=== PATIENT | female | born 1975 | race Caucasian/White ===

== ENCOUNTER 2017-02-06 05:34 | Outpatient (CLI) | payer BC ==
[~2017-02-06] VITALS: Ht 175.3 cm; Wt 122.5 kg
[~2017-02-06 05:34] MED LIST: FLUO20CA42 PO; HYDR1TAB PO; PRD20T PO
[2017-02-06] MEDS ORDERED: SERT50TA9 PO (11:00)
[2017-02-06] MEDS ORDERED: AMLO5TAB2 PO (11:00)
[2017-02-06] MEDS ORDERED: LOSA50TA36 PO (11:00)
== END 2017-02-06 11:04 ==
LOC: PREOP 05:34
PROVIDERS: ATTEND Orthopaedic Surgery
DX: Z01.818 Encounter for other preprocedural examination (principal); G56.02 Carpal tunnel syndrome, left upper limb

== ENCOUNTER 2017-02-12 06:41 | Day surgery (SDC) | payer BC ==
--- NOTE | 2017-02-10 08:11 | HISTORY AND PHYSICAL ---
DATE OF ADMISSION: 02/12/2017 DICTATING PHYSICIAN: Dr. Messina This will be for outpatient surgery for left carpal tunnel release. HISTORY: The patient is a 41-year-old female with complaints of bilateral hand pain and paresthesias intermittently. She underwent an EMG which revealed bilateral carpal tunnel syndrome. She reports night pain and with associated paresthesias. She has tried rest, activity modifications, and splinting, as well as anti-inflammatories, but reports continued functional impairment and due to failure to improve with conservative measures, the patient has elected to proceed with left carpal tunnel release. REVIEW OF SYSTEMS: No chest pain, no shortness of breath. No dysuria. PAST MEDICAL HISTORY: 1. Depression. 2. Hyperlipidemia. 3. Sleep apnea. 4. Obesity. 5. Ovarian cyst. PAST SURGICAL HISTORY: 1. Hysterectomy. 2. Tonsillectomy. FAMILY HISTORY: 1. Hypertension. 2. Diabetes. PRIMARY CARE: [facility]. MEDICATIONS: 1. Losartan 2. Zoloft 3. amlodipine ALLERGIES: No known drug allergies. SOCIAL HISTORY: The patient is a former smoker. She drinks alcohol occasionally. PHYSICAL EXAMINATION: The patient is well-developed, well-nourished, in no acute distress. HEENT: Normocephalic, atraumatic. Pupils are equal, round, and reactive to light. OROPHARYNX: Clear. NECK: Supple. No lymphadenopathy. LUNGS: Clear to auscultation bilaterally. HEART: Regular rate and rhythm. ABDOMEN: Soft, nontender, nondistended. EXTREMITY EXAM: The left hand demonstrates mild thenar atrophy. She has weakness with thumb palmar abduction with a positive Tinel's at the carpal tunnel decreased sensation in the median distribution. She has negative Spurling's maneuver. No skin lesions are noted. IMPRESSION: Left carpal tunnel syndrome. PLAN: Left carpal tunnel release. The risks, benefits, options, ramifications and recovery were discussed at length with the patient and she understands and wishes to proceed. Job ID: [id number] Dictated Date: 02/03/2017 12:10:00 Vegetable Harvest Machine Operator Date: 02/04/2017 08:05:49/javy
[~2017-02-12] VITALS: Ht 175.3 cm; Wt 122.5 kg
[~2017-02-12 06:41] MED LIST changes: +AMLO5TAB2 PO; +LOSA50TA36 PO; +SERT50TA9 PO
[2017-02-12 06:50] VITALS: BP 118/84
[2017-02-12] MEDS ORDERED: NS (IVPB) 50 ML ONE (07:15)
[2017-02-12] MEDS ORDERED: ceFAZolin 1,000 MG (ANCEF) VIAL ONE (07:15)
[2017-02-12] MEDS ORDERED: ceFAZolin 1 GM/NS 50 ML IVPB IV ONE ×2 (07:30)
[2017-02-12] MEDS ORDERED: CATHETER FLUSH 10 ML SYR IV PRN (07:30)
--- NOTE | 2017-02-12 07:31 | Progress Note-Pre Operative ---
Pre-Operative Progress Note H&P Reviewed The H&P was reviewed, patient examined and no changes noted. Date H&P Reviewed: Feb 12, 2017 Time H&P Reviewed: 07:11 Pre-Operative Diagnosis: left carpal tunnel syndrome JADIEL LEVIN MD Feb 12, 2017 07:31
--- NOTE | 2017-02-12 07:32 | Progress Note-Post Operative ---
Post-Operative Progess Note Surgeon (s)/Cathode Ray Tube Assembler (s) Surgeon JADIEL LEVIN MD Cathode Ray Tube Assembler: Deon Cedillo Pre-Operative Diagnosis left carpal tunnel syndrome Post-Operative Diagnosis left carpal tunnel syndrome Post-Op Procedure Note Date of Procedure: Feb 12, 2017 Name of Procedure Performed: left open carpal tunnel release Description of the Procedure: see operative note Findings of the Procedure see operative note Anesthesia Type MAC plus local Estimated blood loss (mL): minimal Packing: none Specimen(s) collected/removed none JADIEL LEVIN MD Feb 12, 2017 07:32
[2017-02-12] MEDS ORDERED: LACTATED RINGERS 1,000 ML IV PRN (07:46)
[2017-02-12] MEDS ORDERED: PROPOFOL INJECTION 50 ML IV ONE (08:20)
[2017-02-12] MEDS ORDERED: LACTATED RINGERS 1,000 ML IV ONE (08:20)
[2017-02-12] MEDS ORDERED: MIDAZOLAM 10 MG/2 ML (VERSED) VIAL ONE (08:21)
[2017-02-12] MEDS ORDERED: fentaNYL INJECTION 100 MCG/2 ML AMP ONE (08:21)
[2017-02-12] MEDS ORDERED: HYDROcodone/APAP 7.5 MG/325 MG (LORTAB, LORCET PLUS) TABLET PO PRN (08:30)
[2017-02-12] MEDS ORDERED: LIDOCAINE 1% INJ 20 ML (XYLOCAINE) VIAL ONE (08:33)
[2017-02-12] MEDS ORDERED: BUPIVACAINE 0.5% 30 ML (SENSORCAINE) VIAL ONE (08:33)
[2017-02-12] MEDS ORDERED: MEPERIDINE (DEMEROL) INJ 50 MG/ML IVP PRN (09:15)
[2017-02-12] MEDS ORDERED: ONDANSETRON 4 MG/2 ML (SDV) Z0FRAN IVP PRN (09:15)
[2017-02-12] MEDS ORDERED: morphine INJ 10 MG/ML 1ML (SYR OR VIAL) IVP PRN (09:15)
[2017-02-12 10:35] VITALS: BP 141/87
[2017-02-12 11:05] VITALS: BP 133/83
[2017-02-12] MEDS ORDERED: HYDR-3816 PO (11:19)
[2017-02-12 11:35] VITALS: BP 119/85
[2017-02-12 11:40] VITALS: BP 119/85
--- NOTE | 2017-02-13 11:12 | OPERATIVE REPORT ---
PROCEDURE PHYSICIAN: JADIEL LEVIN DATE OF PROCEDURE: 02/12/2017 PREOPERATIVE DIAGNOSIS: Left carpal tunnel syndrome. POSTOPERATIVE DIAGNOSIS: Left carpal tunnel syndrome. PROCEDURE: Left carpal tunnel release. SURGEON: Siddharth HOT CAR CHARGER: Deon Cedillo, who assisted throughout the procedure and closed the incisions ANESTHESIA: Monitored anesthesia care plus local by Deon Hayes CRNA. TOURNIQUET TIME: 4 minutes at 250 mmHg. ESTIMATED BLOOD LOSS: Minimal. DRAINS: None. COMPLICATIONS: None. POSTOPERATIVE PLAN: Routine protocol. The patient was transported to the recovery room, awake, in stable condition. STATEMENT OF MEDICAL NECESSITY: The patient is a 41-year-old, [id number] female with complaints of left hand pain and paresthesias. An EMG nerve conduction study revealed evidence of left carpal tunnel syndrome. She complained of night pain. She complained of paresthesias which are interfering with her activities of daily living and due to functional impairment and failure to improve with conservative measures, the patient elected to proceed with surgical intervention. PROCEDURE: After risks and benefits of procedure were discussed and questions were answered an informed consent signed and placed on the chart. The operative site was confirmed in the preoperative holding area and initialed by the surgeon. The patient was then transported to the operating room and after adequate levels of monitored anesthesia care were obtained, a timeout was called confirming the operative sites. Under sterile conditions, the incision site was infiltrated with combination of plain lidocaine and plain Marcaine. The left upper extremity was then prepped and draped in the usual sterile fashion. With arm elevated, the tourniquet was inflated to 250 mmHg. An incision was made in line with the radial border of the ring finger and then the underlying soft tissues were carefully dissected. The roof of the transverse carpal ligament was identified and sharply incised under direct visualization while pushing through with the scalpel blade. The median nerve was identified and carefully protected throughout the procedure. It was intact at the conclusion of the procedure. The nerve was fully released distally and then proximally under direct visualization while protecting the nerve. The transverse carpal ligament was incised with the slightly opened scissor ends and snipping under direct visualization until fully freed. This was confirmed fully freed with a [place]. The tourniquet was deflated for a total tourniquet time of 4 minutes. Pressure was used for hemostasis. The wound was copiously irrigated and then closed with 4-0 nylon in a running, alternating horizontal mattress fashion. A soft dressing was applied, as well as a splint and the patient was transported to the recovery room, awake, in stable condition. Job ID: [id number] Dictated Date: 02/12/2017 09:22:51 Public Policy Coordinator Date: 02/13/2017 11:01:47 / humberto
--- OUTSIDE RECORDS SUMMARY | 2017-03-02 05:46 | XMS REPORT ---
Author Author JI ROBERSON [facility] eClinicalWorks Address Unknown Phone Unavailable Care Team Providers Care Assembler [employer]al [employer] Name Role Phone JI ROBERSON Unavailable Allergies No Known Allergies Problems Problem Type Condition Code Onset Dates Condition Status Problem Personal history of tobacco use, presenting hazards to health V15.82 Active Problem Excessive or frequent menstruation 626.2 Active Problem Dietary surveillance and counseling V65.3 Active Problem Screening for malignant neoplasm of the cervix V76.2 Active Problem Special screening examination, human papillomavirus [HPV] V73.81 Active Problem HTN (hypertension) I10 Active Problem Routine gynecological examination V72.31 Active Problem Unspecified breast screening V76.10 Active Problem Screening examination for venereal disease V74.5 Active Problem Morbid obesity 278.01 Active Problem Wheezing 786.07 Active Problem Irregular menstrual cycle 626.4 Active Problem Other abnormal glucose 790.29 Active Problem Cough 786.2 Active Problem Acute sinusitis, unspecified 461.9 Active Medications No Known Medications Results No Known Results Summary Purpose eClinicalWorks Submission
--- OUTSIDE RECORDS SUMMARY | 2017-03-02 05:46 | XMS REPORT | Continuity of Care Document ---
Author Author [facility] Organization [facility] Address Unknown Phone Unavailable Care Team Providers Care Glove Boarder Name Role Phone Hayde Rockwell PCP [phone] Source Comments Some departments are not documenting in the electronic medical record. If you do not see the information that you expected, contact Release of Information in the Health Information Management department at [phone] for further assistance in locating additional records.[facility] Active Allergies and Adverse Reactions No Known Allergies Current Medications Prescription Sig. Disp. Refills Start End Date Status Date senna/docusate Take 1 Tab by mouth twice 60 Tab 0 06/28/20 Active (SENOKOT-S) 8.6/50 mg daily. 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 Perez on 06/04/2016 for an ovarian mass. She repoerted that she presented to her PCP due to irregular bleeding in April. An ultrasound done on 05/16/2016 showed a large solid shadowing mass measuring 7 x 6 x 8 cm. Arose from the right ovary. Upon examination, there was a cervical polyp noted. There was a large mobile mass in the right adnexa. Did not appear to be connected to the uterus CA125: 28.7 CEA: 2.4 CT obtained on 06/06/2016 which showed a 10 cm pelvic mass abutting the posterior margin of the uterus. Consider ovarian fibrothecoma or fibroid arising from the posterior margin of the uterus./broad ligament Pathology: 1. none Radiology/procedures: 1. CT: Done on 06/07/2016 (new since last ultrasound from 2013): 10 cm mass; correlation with recent MRI: ovarian fibrothecoma or fibroma from uterus/broad ligament 2. Ultrasound: 05/16/2016: uterus is 9.8 x 5. X 5.7 cm. involution cyst in the left ovary. The right ovary appears normal in size at 5 x 3 x 2 cm. There is a large solid mass extending off the inferior aspect of the right ovary at 7 x 6 x 8 cm. Mild free fluid 3. Other: no S/P HERNAN/BSO with Dr. CLEMENTS 06/26/16 with fibroma of L ovary and leiomyoma of the uterus. Presents for final 8 week postoperative visit. A. Portion of ovary, "left ovary", oophorectomy: Ovary: Benign ovarian fibroma. Surface inclusion and follicular cysts. B. Ovary and fallopian tube, "left tube and remaining portion of left ovary", salpingo-oophorectomy: Ovary: Benign surface inclusion and follicular cysts. Fallopian tube: No diagnostic abnormalities. C. Ovary and fallopian tube, "right tube and ovary", salpingo-oophorectomy: Ovary: Benign surface inclusion, corpus luteal cyst and follicular cysts. Fallopian tube: No diagnostic abnormalities. D. "Uterus and cervix", hysterectomy: Cervix: Benign nabothian cysts. Endometrium: Proliferative phase endometrium Myometrium: Leiomyomata. L ast Assessment & Plan: 1. Ms. Alvarez is a 40 yo female s/p HERNAN/BSO 06/26/[address] CLEMENTS. 2. Presents for final 8 week postoperative visit. 3. Exam is routine postoperative without complication. 4. Encourage annual pelvic/rectal exams with PCP/PROFESSOR OF BIOLOGY along with routine screening tests. 5. Recommend activity as tolerated. Avoid baths and nothing in vagina until 10 weeks. 6. RV PRN. Cellulitis 07/04/2016 Resolved Problems Problem Noted Date Resolved Date Pelvic mass in female 06/26/2016 07/04/2016 Ovarian mass 06/16/2016 07/04/2016 Overview: CC: ovarian mass, evaluate and treat REF:Conchis Perez MD PCP: Rahul Rockwell APRN HPI: Ms Alvarez is a 40 yo who presented to Dr. Perez on 06/04/2016 for an ovarian mass. She repoerted that she presented to her PCP due to irregular bleeding in April. An ultrasound done on 05/16/2016 showed a large solid shadowing mass measuring 7 x 6 x 8 cm. Arose from the right ovary. Upon examination, there was a cervical polyp noted. There was a large mobile mass in the right adnexa. Did not appear to be connected to the uterus CA125: 28.7 CEA: 2.4 CT obtained on 06/06/2016 which showed a 10 cm pelvic mass abutting the posterior margin of the uterus. Consider ovarian fibrothecoma or fibroid arising from the posterior margin of the uterus./broad ligament She is now being referred to my office. Pathology: 1. none Radiology/procedures: 1. CT: Done on 06/07/2016 (new since last ultrasound from 2013): 10 cm mass; correlation with recent MRI: ovarian fibrothecoma or fibroma from uterus/broad ligament 2. Ultrasound: 05/16/2016: uterus is 9.8 x 5. X 5.7 cm. involution cyst in the left ovary. The right ovary appears normal in size at 5 x 3 x 2 cm. There is a large solid mass extending off the inferior aspect of the right ovary at 7 x 6 x 8 cm. Mild free fluid 3. Other: no PMH: 1. Any history of problems with heart/lung/kidney/liver/hepatitis/DM/thyroid disease/hematologic disorders/DVT: 2. Obesity 3. HTN 4. GERD 5. depression PSH: 1. Tonsillectomy PULLEY MAN: 1. 2. Menarche: 10 3. LMP/menopausal: 05/25/2016 4. OCP/ERT/HRT: OCP x 1 year 5. control-current: no 6. STDs: no 7. Sexually active: Only with women 8. Fibroids/endometriosis: no hx 9. If premenopausal, menstrual pattern, normal: q 29 days, lasting 5-7 days 10. Last pap smear: 06/04/2016: HR-HPV: Negative SH: 1. Smoke: 1ppd x 20 years 2. Drugs: no 3. ETOH: occasional. Occupation: farming in [employer] 5. Marital status: single; partners have been women 6. Last colonoscopy: none 7. Last Mammogram: none FH: 1. Cancer: no L ast Assessment & Plan: With the exception of the mass, the CT is unremarkable. It is not clear from either the MRI or the CT whether it arises from the uterus, or ovary. That being said, it is difficult to get her to relax; I have scheduled her for an EUA, possible biopsy on Friday. I performed an EMB and ECC/cervix polyp biopsy today. Will further discuss DDX; that being said, will arrange for surgery- definitive once I have more information. The mass itself will need to be removed; will require removal of the uterus/ovaries/tubes. Observation is not an option due to size, characteristics. It seems to be behaving like a benign mass, but the exam/films are confusing. I hope that I can get more information with the EUA. Social History Tobacco Use Types Packs/Day Years Used Date Current Every Day Smoker Cigarettes 1 Smokeless Tobacco: Never Used Tobacco Cessation: Ready to Quit: Yes; Counseling Given: No Comments: Alcohol Use Drinks/Week oz/Week Comments Yes Last Filed Vital Signs Vital Sign Reading Time Taken Blood Pressure 140/83 08/22/2016 10:12 AM CDT Pulse 83 08/22/2016 10:12 AM CDT Temperature 36.8 C (98.2 F) 08/22/2016 10:12 AM CDT Respiratory Rate 20 07/04/2016 11:03 AM CDT Height 1.753 m (5' 9") 08/22/2016 10:12 AM CDT Weight 116.937 kg (257 lb 12.8 08/22/2016 10:12 AM CDT oz) Body Mass Index 38.05 08/22/2016 10:12 AM CDT Oxygen Saturation 97% 08/22/2016 10:12 AM CDT Plan of Care Health Maintenance Due Date Last Done Comments Physical (Comprehensive) 1982 Exam Pertussis Vaccine 1986 Tetanus Vaccine 1992 Cervical Cancer Screening 1996 Breast Cancer Screening 2015 Influenza Vaccine 07/18/2017 Results from Last 3 Months Not on file
--- OUTSIDE RECORDS SUMMARY | 2017-03-02 05:46 | XMS REPORT ---
Author Author TARA THOMAS [facility] eClinicalWorks Address Unknown Phone Unavailable Care Team Providers Care Finance Business Manager Name Role Phone TARA THOMAS CP Unavailable Allergies, Adverse Reactions, Alerts Substance Reaction Event Type N.K.D.A. Info Not Available Non Drug Allergy Problems Problem Type Condition ICD-9 Code Onset Dates Condition Status Problem Acute sinusitis, unspecified 461.9 Active Problem Dietary surveillance and counseling V65.3 Active Problem Personal history of tobacco use, presenting hazards to health V15.82 Active Problem Special screening examination, human papillomavirus [HPV] V73.81 Active Problem Screening examination for venereal disease V74.5 Active Problem Screening for malignant neoplasm of the cervix V76.2 Active Problem Unspecified breast screening V76.10 Active Problem Excessive or frequent menstruation 626.2 Active Problem Morbid obesity 278.01 Active Problem Routine gynecological examination V72.31 Active Problem Cough 786.2 Active Problem Wheezing 786.07 Active Assessment Poison jacqueline 692.6 Active Problem Irregular menstrual cycle 626.4 Active Assessment Depression 311 Active Problem Other abnormal glucose 790.29 Active Medications Medication Code System Code Instructions Start Date End Date Status Dosage Zoloft [facility] [address]-75 50 MG Orally Once a day Aug 10, 2015 1 tablet Triamcinolone Acetonide [facility] [address]-07 0.1 % Externally Twice a day prn Aug 10, 2015 1 application to affected area Procedures Procedure Coding System Code Date Office Visit, Est Pt., Level 3 CPT-4 01597 Aug 10, 2015 Vital Signs Date/Time: Aug 10, 2015 Temperature 97.3 F Weight 265.5 lbs Height 68 in BMI 40.36 Index Blood Pressure Diastolic 78 mmHg Blood Pressure Systolic 112 mmHg Cardiac Monitoring Heart Rate 80 bpm Results No Known Results Summary Purpose eClinicalWorks Submission
--- OUTSIDE RECORDS SUMMARY | 2017-03-02 05:46 | XMS REPORT ---
Author JI Dutton Organization eClinicalWorks Address Unknown Phone Unavailable Care Team Providers Care Ironing Worker Name Role Phone JI ROBERSON CP Unavailable Allergies, Adverse Reactions, Alerts Substance Reaction Event Type N.K.D.A. Info Not Available Non Drug Allergy Problems Problem Type Condition Code Onset Dates Condition Status Problem HTN (hypertension) I10 Active Problem Hypertriglyceridemia E78.1 Active Problem Abnormal fasting glucose R73.09 Active Assessment Environmental allergies Z91.09 Active Problem Personal history of tobacco use, presenting hazards to health V15.82 Active Assessment Bronchitis J40 Active Medications Medication Code System Code Instructions Start Date End Date Status Dosage Proventil HFA [facility] [address]-64 108 (90 Base) MCG/ACT Inhalation every 4 hrs Nov 09, 2015 2 puffs as needed Amlodipine Besylate [facility] [address]-48 5 MG Orally Once a day Oct 17, 2015 1 tablet Levaquin [facility] [address]-67 500 MG Orally Once a day Nov 09, 2015 Nov 19, 2015 1 tablet Zoloft [facility] [address]-11 50 MG Orally Once a day Aug 10, 2015 1 tablet Losartan Potassium [facility] [address]-14 50 MG Orally 2 times a day Sep 14, 2015 1 tablet Procedures Procedure Coding System Code Date DEXAMETHASONE 4MG/ML (PER 1 MG) CPT-4 J1100 Nov 09, 2015 THER/PROPH/DIAG INJ, SC/IM CPT-4 32181 Nov 09, 2015 Office Visit, Est Pt., Level 3 CPT-4 44670 Nov 09, 2015 DEPO MEDROL 40 MG/ML CPT-4 J1030 Nov 09, 2015 Vital Signs Date/Time: Nov 09, 2015 Temperature 96.9 F Weight 260.4 lbs Height 68 in BMI 39.59 Index Blood Pressure Diastolic 64 mmHg Blood Pressure Systolic 120 mmHg Cardiac Monitoring Heart Rate 80 bpm Results No Known Results Summary Purpose eClinicalWorks Submission
--- OUTSIDE RECORDS SUMMARY | 2017-03-02 05:46 | XMS REPORT ---
Author Author ABDELRAHMAN HERBERT Organization eClinicalWorks Address Unknown Phone Unavailable Care Team Providers Care Floor Representative Name Role Phone ABDELRAHMAN HERBERT CP Unavailable Allergies, Adverse Reactions, Alerts Substance Reaction Event Type N.K.D.A. Info Not Available Non Drug Allergy Problems Problem Type Condition Code Onset Dates Condition Status Problem HTN (hypertension) I10 Active Problem Hypertriglyceridemia E78.1 Active Problem Abnormal fasting glucose R73.09 Active Assessment Otitis media of both ears H66.93 Active Problem Personal history of tobacco use, presenting hazards to health V15.82 Active Assessment Vertigo R42 Active Medications Medication Code System Code Instructions Start Date End Date Status Dosage Amlodipine Besylate [facility] [address]-29 5 MG Orally Once a day Oct 17, 2015 1 tablet Losartan Potassium [facility] [address]-91 50 MG TAKE ONE TABLET BY MOUTH TWICE DAILY Augmentin [facility] [address]-69 875-125 MG Orally every 12 hrs March 05, 2016 March 15, 2016 1 tablet Zoloft [facility] [address]-89 50 MG Orally Once a day Aug 10, 2015 1 tablet Procedures Procedure Coding System Code Date Office Visit, Est Pt., Level 3 CPT-4 68486 March 12, 2016 Vital Signs Date/Time: March 12, 2016 Temperature 97.8 F Weight 256 lbs Height 68 in BMI 38.92 Index Blood Pressure Diastolic 88 mmHg Blood Pressure Systolic 128 mmHg Cardiac Monitoring Heart Rate 64 bpm Results No Known Results Summary Purpose eClinicalWorks Submission
--- OUTSIDE RECORDS SUMMARY | 2017-03-02 05:46 | XMS REPORT ---
Author Author ROXANA REAGAN Organization eClinicalWorks Address Unknown Phone Unavailable Care Team Providers Care Recreation Assistant Name Role Phone ROXANA REAGAN CP Unavailable Allergies, Adverse Reactions, Alerts Substance Reaction Event Type N.K.D.A. Info Not Available Non Drug Allergy Problems Problem Type Condition Code Onset Dates Condition Status Assessment Bronchitis J40 Active Problem Dysfunctional uterine bleeding N93.8 Active Problem Sleep apnea in adult G47.33 Active Problem Pelvic pain R10.2 Active Problem HTN (hypertension) I10 Active Problem Hypertriglyceridemia E78.1 Active Problem Depression, unspecified depression type F32.9 Active Problem Abnormal fasting glucose R73.09 Active Medications Medication Code System Code Instructions Start Date End Date Status Dosage Losartan Potassium [facility] [address]-90 50 mg Orally 2 times a day 1 tablet Amlodipine Besylate [facility] 00796325235 5 MG TAKE ONE TABLET BY MOUTH ONCE DAILY ProAir HFA [facility] [address]-42 108 (90 Base) MCG/ACT Inhalation every 4 hrs as needed Sep 19, 2016 2 puffs as needed Azithromycin [facility] [address]-31 250 MG Orally Once a day Sep 19, 2016 Sep 24, 2016 2 tablets on the first day, then 1 tablet daily for 4 days Zoloft [facility] [address]-93 50 MG Orally Once a day Aug 10, 2015 1 tablet Procedures Procedure Coding System Code Date Office Visit, Est Pt., Level 3 CPT-4 39620 Sep 19, 2016 SOLUMEDROL (UP TO 125 MG) CPT-4 J2930 Sep 19, 2016 ALBUTEROL INHAL UNIT DOSE 1 MG CPT-4 J7613 Sep 19, 2016 THER/PROPH/DIAG INJ, SC/IM CPT-4 53559 Sep 19, 2016 Vital Signs Date/Time: Sep 19, 2016 Cardiac Monitoring Heart Rate 80 bpm Weight 256 lbs Height 68 in BMI 38.92 Index Blood Pressure Diastolic 80 mmHg Blood Pressure Systolic 116 mmHg Results Name Result Date Reference Range Unit Abnormality Flag NEBULIZER TREATMENT Summary Purpose eClinicalWorks Submission
--- OUTSIDE RECORDS SUMMARY | 2017-03-02 05:47 | XMS REPORT ---
Author Author ABDELRAHMAN HERBERT Organization eClinicalWorks Address Unknown Phone Unavailable Care Team Providers Care Purchaser Automotive Parts Name Role Phone ABDELRAHMAN HERBERT CP Unavailable Allergies, Adverse Reactions, Alerts Substance Reaction Event Type N.K.D.A. Info Not Available Non Drug Allergy Problems Problem Type Condition Code Onset Dates Condition Status Problem HTN (hypertension) I10 Active Problem Hypertriglyceridemia E78.1 Active Problem Abnormal fasting glucose R73.09 Active Problem Personal history of tobacco use, presenting hazards to health V15.82 Active Assessment Otitis media of both ears H66.93 Active Medications Medication Code System Code Instructions Start Date End Date Status Dosage Zoloft [facility] [address]-89 50 MG Orally Once a day Aug 10, 2015 1 tablet Losartan Potassium [facility] [address]-19 50 MG TAKE ONE TABLET BY MOUTH TWICE DAILY Amlodipine Besylate [facility] [address]-78 5 MG Orally Once a day Oct 17, 2015 1 tablet Augmentin [facility] [address]-86 875-125 MG Orally every 12 hrs March 05, 2016 March 15, 2016 1 tablet Procedures Procedure Coding System Code Date Office Visit, Est Pt., Level 3 CPT-4 95448 March 05, 2016 Vital Signs Date/Time: March 05, 2016 Temperature 98.2 F Weight 257.3 lbs Height 68 in BMI 39.12 Index Blood Pressure Diastolic 84 mmHg Blood Pressure Systolic 130 mmHg Cardiac Monitoring Heart Rate 72 bpm Results No Known Results Summary Purpose eClinicalWorks Submission
--- OUTSIDE RECORDS SUMMARY | 2017-03-02 05:47 | XMS REPORT ---
Author Author TARA THOMAS [facility] eClinicalWorks Address Unknown Phone Unavailable Care Team Providers Care Utility Operator Name Role Phone TARA THOMAS CP Unavailable Allergies No Known Allergies Problems Problem [...] Problem Irregular menstrual cycle 626.4 Active Assessment Elevated fasting glucose R73.01 Active Problem Other abnormal glucose 790.29 Active Problem Cough 786.2 Active Problem Acute sinusitis, unspecified 461.9 Active Medications Medication Code System Code Instructions Start Date End Date Status Dosage Fish Oil [facility] [address]-09 1000 MG Orally Once a day 2 capsule Results No Known Results Summary Purpose eClinicalWorks Submission
--- OUTSIDE RECORDS SUMMARY | 2017-03-02 05:47 | XMS REPORT ---
Author Author TARA THOMAS Organization eClinicalWorks Address Unknown Phone Unavailable Care Team Providers Care Qa Tester Name Role Phone TARA THOMAS CP Unavailable Allergies No Known Allergies Problems Problem Type Condition Code Onset Dates Condition Status Problem HTN (hypertension) I10 Active Problem Hypertriglyceridemia E78.1 Active Problem Abnormal fasting glucose R73.09 Active Problem Personal history of tobacco use, presenting hazards to health V15.82 Active Medications Medication Code System Code Instructions Start Date End Date Status Dosage Amlodipine Besylate [facility] [address]-30 5 MG Orally Once a day Oct 17, 2015 1 tablet Losartan Potassium [facility] [address]-82 50 mg Orally 2 times a day 1 tablet Results No Known Results Summary Purpose eClinicalWorks Submission
--- OUTSIDE RECORDS SUMMARY | 2017-03-02 05:47 | XMS REPORT ---
Author Author JI ROBERSON Organization [facility] Address [address] [place] [address] Care Team Providers Care Matrix Inspector Name Role Phone JI ROBERSON Unavailable PROBLEMS Type Condition ICD9-CM Code DQL38-HH Code Onset Dates Condition Status SNOMED Code Problem Hypertriglyceridemia E78.1 Active 301589792 Problem Pelvic pain R10.2 Active 39137662 Problem Dysfunctional uterine bleeding N93.8 Active 81042272 Problem Abnormal fasting glucose R73.09 Active 803847822 Problem HTN (hypertension) I10 Active 91753186 Problem Sleep apnea in adult G47.33 Active 46705696 Problem Depression, unspecified depression type F32.9 Active 75381659 ALLERGIES Unknown Allergies SOCIAL HISTORY No smoking Hx information available PLAN OF CARE VITAL SIGNS MEDICATIONS Medication Instructions Dosage Frequency Start Date End Date Duration Status Chantix Continuing Month Francisco 1 MG Orally Twice a day 1 tablet 12h Sep, 30 day(s) Active RESULTS No Results PROCEDURES No Known procedures IMMUNIZATIONS No Known Immunizations
--- OUTSIDE RECORDS SUMMARY | 2017-03-02 05:47 | XMS REPORT | Continuity of Care Document ---
Author Author [facility] Organization [facility] Address Unknown Phone Unavailable Allergies Active Description Code Type Severity Reaction Onset Reported/Identified Relationship to Patient Clinical Status Yes No Known Drug Allergies [id number] Drug Allergy Unknown N/ A 06/30/2011 Medications Problems Date Dx Coded Attending Type Code Diagnosis Diagnosed By 04/17/2010 465.9 Upper Respiratory Infection 04/17/2010 465.9 Upper Respiratory Infection 04/17/2010 MADTHERESA Ca APRNA L 465.9 Upper Respiratory Infection 04/17/2010 DEANNA THOMAS MANDY A 465.9 Upper Respiratory Infection 04/17/2010 DEANNA THOMAS MANDY A 465.9 Upper Respiratory Infection 04/17/2010 MADTHERESA Ca APRNA L 465.9 Upper Respiratory Infection 04/17/2010 GERBER CARLTON APRNRICIA R 465.9 Upper Respiratory Infection 08/28/2010 461.9 Sinusitis Acute 08/28/2010 461.9 Sinusitis Acute 08/28/2010 ROSEY THOMAS APRNWNYA L 461.9 Sinusitis Acute 08/28/2010 DEANNAKVNG THOMAS MANDY A 461.9 Sinusitis Acute 08/28/2010 DEANNAKVNG THOMAS MANDY A 461.9 Sinusitis Acute 08/28/2010 ROSEY THOMAS APRNWNYA L 461.9 Sinusitis Acute 08/28/2010 GERBER CARLTON APRNRICIA R 461.9 Sinusitis Acute 09/19/2010 296.32 MO DEPRESSIVE RECURRENT MODERATE 09/19/2010 296.32 MO DEPRESSIVE RECURRENT MODERATE 09/19/2010 MADROSEY Ca APRNWNYA L 296.32 MO DEPRESSIVE RECURRENT MODERATE 09/19/2010 DEANNAKVNG THOMAS MANDY A 296.32 MO DEPRESSIVE RECURRENT MODERATE 09/19/2010 DEANNAKVNG THOMAS MANDY A 296.32 MO DEPRESSIVE RECURRENT MODERATE 09/19/2010 MADROSEY Ca APRNWNYA L 296.32 MO DEPRESSIVE RECURRENT MODERATE 09/19/2010 JOSE LUIS CARLTON APRN R 296.32 MO DEPRESSIVE RECURRENT MODERATE 06/30/2011 Ot 620.2 OVARIAN CYST NEC/NOS 06/30/2011 Ot 625.9 FEM GENITAL SYMPTOMS NOS 07/17/2011 620.2 OVARIAN CYST 07/17/2011 620.2 OVARIAN CYST 07/17/2011 SEVENTHERESA Ca APRNA L 620.2 OVARIAN CYST 07/17/2011 DEANNA APRN, MANDY A 620.2 OVARIAN CYST 07/17/2011 DEANNA APRN, MANDY A 620.2 OVARIAN CYST 07/17/2011 SEVENTHERESA Ca APRNA L 620.2 OVARIAN CYST 07/17/2011 JOSE LUIS CARLTON APRN R 620.2 OVARIAN CYST 09/19/2011 V65.45 Anticipatory Guidance: Unsafe Sexual Practices 09/19/2011 V74.5 visit for: screening exam bact/spirochetal venereal disease 09/19/2011 V76.2 Cervical Pap Smear 09/19/2011 V65.45 Anticipatory Guidance: Unsafe Sexual Practices 09/19/2011 V74.5 Visit For: Screening Exam Bact/spirochetal Venereal Disease 09/19/2011 V76.2 Cervical Pap Smear 09/19/2011 TARA THOMAS APRN V65.45 Anticipatory Guidance: Unsafe Sexual Practices 09/19/2011 TARA THOMAS APRN L V74.5 Visit For: Screening Exam Bact/spirochetal Venereal Disease 09/19/2011 TARA THOMAS APRN V76.2 Cervical Pap Smear 09/19/2011 MANDY HUERTA APRN A V65.45 Anticipatory Guidance: Unsafe Sexual Practices 09/19/2011 DEANNA THOMAS MANDY A V74.5 Visit For: Screening Exam Bact/ spirochetal Venereal Disease 09/19/2011 DEANNA THOMAS MANDY A V76.2 Cervical Pap Smear 09/19/2011 DEANNA THOMAS MANDY A V65.45 Anticipatory Guidance: Unsafe Sexual Practices 09/19/2011 DEANNA THOMAS MANDY A V74.5 Visit For: Screening Exam Bact/ spirochetal Venereal Disease 09/19/2011 OLIVERIO HUERTA APRNIDI A V76.2 Cervical Pap Smear 09/19/2011 ROSEY THOMAS APRNGORDO Ca V65.45 Anticipatory Guidance: Unsafe Sexual Practices 09/19/2011 WILLIAM THOMAS TARA L V74.5 Visit For: Screening Exam Bact/spirochetal Venereal Disease 09/19/2011 ROSEY THOMAS APRNWNYA L V76.2 Cervical Pap Smear 09/19/2011 JOSE LUIS CARLTON APRN R V65.45 Anticipatory Guidance: Unsafe Sexual Practices 09/19/2011 JOSE LUIS CRALTON APRN R V74.5 Visit For: Screening Exam Bact/ spirochetal Venereal Disease 09/19/2011 JOSE LUIS CARLTON APRN R V76.2 Cervical Pap Smear 11/08/2011 Ot 327.23 OBSTRUCTIVE SLEEP APNEA (ADULT) (PEDIATR 12/04/2011 Ot 327.23 OBSTRUCTIVE SLEEP APNEA (ADULT) (PEDIATR 06/13/2012 Ot 787.02 NAUSEA ALONE 06/13/2012 Ot 789.06 ABDOMINAL PAIN, EPIGASTRIC 07/14/2012 Ot 719.46 JOINT PAIN-L/LEG 02/25/2013 V65.3 COUNSELING- OBESITY (DIET) 02/25/2013 SEVENRoby WILLIAMTARA L V65.3 COUNSELING- OBESITY (DIET) 02/25/2013 MANDY HUERTA APRN A V65.3 COUNSELING- OBESITY (DIET) 02/25/2013 MANDY HUERTA APRN A V65.3 COUNSELING- OBESITY (DIET) 02/25/2013 TARA THOMAS APRN L V65.3 COUNSELING- OBESITY (DIET) 02/25/2013 JOSE LUIS CARLTON APRN R V65.3 COUNSELING- OBESITY (DIET) 06/01/2014 WILLIAM WILLIAMTARA L V15.82 NICOTINE ABUSE 06/01/2014 MANDY HUERTA APRN A V15.82 NICOTINE ABUSE 06/01/2014 MANDY HUERTA APRN A V15.82 NICOTINE ABUSE 06/01/2014 TARA THOMAS APRN L V15.82 NICOTINE ABUSE 06/01/2014 JOSE LUIS CARLTON APRN R V15.82 NICOTINE ABUSE 09/07/2014 MANDY HUERTA APRN A 626.4 IRREGULAR MENSTRUAL CYCLE 09/07/2014 DEANNA PATROL SUPERVISOR, MANDY A 626.4 IRREGULAR MENSTRUAL CYCLE 09/07/2014 THERESA THOMAS APRNA L 626.4 IRREGULAR MENSTRUAL CYCLE 09/07/2014 SAEED CARLTON APRNIA R 626.4 IRREGULAR MENSTRUAL CYCLE 09/21/2014 OLIVERIO HUERTA APRNIDI A 278.01 MORBID OBESITY 09/21/2014 OLIVERIO HUERTA APRNIDI A 626.2 EXCESSIVE OR FREQUENT MENSTRUATION 09/21/2014 OLIVERIO HUERTA APRNIDI A V72.31 SUPERVISOR LIQUID YEAST EXAM, ROUTINE 09/21/2014 OLIVERIO HUERTA APRNIDI A V72.62 LAB SCREENING- GENERAL PHYSICAL 09/21/2014 OLIVERIO HUERTA APRNIDI A V73.81 HPV SCREENING 09/21/2014 OLIVERIO HUERTA APRNIDI A V74.5 STD SCREEN 09/21/2014 OLIVERIO HUERTA APRNIDI A V76.10 BREAST CANCER SCREENING 09/21/2014 OLIVERIO HUERTA APRNIDI A V76.2 CERVICAL CANCER SCREENING (PAP SMEAR) 09/21/2014 THERESA THOMAS APRNA L 278.01 MORBID OBESITY 09/21/2014 THERESA THOMAS APRNA L 626.2 EXCESSIVE OR FREQUENT MENSTRUATION 09/21/2014 ROSEANNE THOMAS APRNNYA L V72.31 SUPERVISOR LIQUID YEAST EXAM, ROUTINE 09/21/2014 ROSEANNE THOMAS APRNNYA L V72.62 LAB SCREENING- GENERAL PHYSICAL 09/21/2014 ROSEY THOMAS APRNWNYA L V73.81 HPV SCREENING 09/21/2014 ROSEANNE THOMAS APRNNYA L V74.5 STD SCREEN 09/21/2014 ROSEANNE THOMAS APRNNYA L V76.10 BREAST CANCER SCREENING 09/21/2014 WILLIAM THOMAS TARA L V76.2 CERVICAL CANCER SCREENING (PAP SMEAR) 09/21/2014 SAEED CARLTON APRNIA R 278.01 MORBID OBESITY 09/21/2014 SAEED CARLTON APRNIA R 626.2 EXCESSIVE OR FREQUENT MENSTRUATION 09/21/2014 JOSE LUIS CARLTON APRN R V72.31 SUPERVISOR LIQUID YEAST EXAM, ROUTINE 09/21/2014 JOSE LUIS CARLTON APRN R V72.62 LAB SCREENING- GENERAL PHYSICAL 09/21/2014 JOSE LUIS CARLTON APRN V73.81 HPV SCREENING 09/21/2014 CARLTON WILLIAM JOSE LUIS R V74.5 STD SCREEN 09/21/2014 CARLTON PATROL SUPERVISORJOSE LUIS Casey R V76.10 BREAST CANCER SCREENING 09/21/2014 CARLTON GERBER THOMASRICIA R V76.2 CERVICAL CANCER SCREENING (PAP SMEAR ) 09/29/2014 Ot 620.2 09/29/2014 Ot 621.2 09/29/2014 Ot 789.00 09/29/2014 Ot 620.0 09/29/2014 Ot 793.5 09/29/2014 Ot 620.2 09/29/2014 Ot 621.2 09/29/2014 Ot 789.00 09/29/2014 Ot 620.0 09/29/2014 Ot 793.5 10/06/2014 THERESA THOMAS APRNA L 461.9 SINUSITIS ACUTE 10/06/2014 ROSEY THOMAS APRNWNYA L 790.29 OTHER ABNORMAL GLUCOSE 10/06/2014 BRANDT PATROL SUPERVISORJOSE LUIS Casey R 461.9 SINUSITIS ACUTE 10/06/2014 CARLTON SAEED THOMASIA R 790.29 OTHER ABNORMAL GLUCOSE 10/24/2014 Ot 620.2 10/24/2014 Ot 621.2 10/24/2014 Ot 789.00 10/24/2014 Ot 620.0 10/24/2014 Ot 793.5 10/24/2014 MANDY HUERTA APRN Ot 218.1 10/24/2014 MANDY HUERTA A PATROL SUPERVISOR Ot 620.2 10/24/2014 OLIVERIO HUERTAIDI A PATROL SUPERVISOR Ot 626.2 11/07/2014 OLIVERIO HUERTAIDI A PATROL SUPERVISOR Ot 218.1 11/07/2014 OLIVERIO HUERTAIDI A PATROL SUPERVISOR Ot 620.2 11/07/2014 OLIVERIO HUERTAIDI A PATROL SUPERVISOR Ot 626.2 11/23/2014 Ot 620.2 11/23/2014 Ot 621.2 11/23/2014 Ot 789.00 11/23/2014 Ot 620.0 11/23/2014 Ot 793.5 11/23/2014 MANDY HUERTA A PATROL SUPERVISOR Ot 218.1 11/23/2014 OLIVERIO HUERTAIDI A PATROL SUPERVISOR Ot 620.2 11/23/2014 MANDY HUERTA PATROL SUPERVISOR Ot 626.2 12/06/2014 MANDY HUERTA PATROL SUPERVISOR Ot 218.1 12/06/2014 MANDY HUERTA PATROL SUPERVISOR Ot 620.2 12/06/2014 MANDY HUERTA PATROL SUPERVISOR Ot 626.2 02/10/2015 SAEED CARLTON APRNIA R 786.07 WHEEZING 02/10/2015 JOSE LUIS CARLTON APRN R 786.2 COUGH 05/17/2016 MADL, TARA L WOODWORKING MACHINE SETTER Ot D25.9 LEIOMYOMA OF UTERUS, UNSPECIFIED 05/17/2016 MADL, TARA L WOODWORKING MACHINE SETTER Ot R19.03 RIGHT LOWER QUADRANT ABDOMINAL SWELLING, 05/29/2016 MADL, TARA L WOODWORKING MACHINE SETTER Ot N83.9 NONINFLAMMATORY DISORD OF OVARY, FALLOP 06/05/2016 Ot 620.2 OVARIAN CYST NEC/NOS 06/05/2016 Ot 621.2 HYPERTROPHY OF UTERUS 06/05/2016 Ot 789.00 ABDOMINAL PAIN, UNSPECIFIED SITE 06/05/2016 Ot 620.0 FOLLICULAR CYST OF OVARY 06/05/2016 Ot 793.5 NOSP (ABN) FINDINGS ON RADIOLOGICAL OT 06/05/2016 MANDY HUERTA PATROL SUPERVISOR Ot 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 06/05/2016 MANDY HUERTA PATROL SUPERVISOR Ot 620.2 OVARIAN CYST NEC/NOS 06/05/2016 MANDY HUERTA PATROL SUPERVISOR Ot 626.2 EXCESSIVE MENSTRUATION 06/05/2016 MADL, TARA L WOODWORKING MACHINE SETTER Ot D25.9 LEIOMYOMA OF UTERUS, UNSPECIFIED 06/05/2016 MADL, TARA L WOODWORKING MACHINE SETTER Ot R19.03 RIGHT LOWER QUADRANT ABDOMINAL SWELLING, 06/05/2016 MADL, TARA L WOODWORKING MACHINE SETTER Ot N83.9 NONINFLAMMATORY DISORD OF OVARY, FALLOP 06/07/2016 MARA FERMIN, BRIDGETT N Ot K57.30 DVRTCLOS OF LG 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 06/07/2016 MARA FERMIN, BRIDGETT N Ot R19.09 OTHER INTRA-ABDOMINAL AND PELVIC SWELLIN 06/07/2016 MARA FERMIN, BRIDGETT N Ot K57.30 DVRTCLOS OF LG 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 06/07/2016 MARA FERMIN, BRIDGETT N Ot R19.09 OTHER INTRA-ABDOMINAL AND PELVIC SWELLIN 06/19/2016 Ot 620.2 OVARIAN CYST NEC/NOS 06/19/2016 Ot 621.2 HYPERTROPHY OF UTERUS 06/19/2016 Ot 789.00 ABDOMINAL PAIN, UNSPECIFIED SITE 06/19/2016 Ot 620.0 FOLLICULAR CYST OF OVARY 06/19/2016 Ot 793.5 NOSP (ABN) FINDINGS ON RADIOLOGICAL OT 06/19/2016 DEANNA, MANDY A PATROL SUPERVISOR Ot 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 06/19/2016 DEANNA, MANDY A PATROL SUPERVISOR Ot 620.2 OVARIAN CYST NEC/NOS 06/19/2016 DEANNA, MANDY Drake PATROL SUPERVISOR Ot 626.2 EXCESSIVE MENSTRUATION 06/19/2016 MADL, TARA L WOODWORKING MACHINE SETTER Ot D25.9 LEIOMYOMA OF UTERUS, UNSPECIFIED 06/19/2016 MADL, ATRA L WOODWORKING MACHINE SETTER Ot R19.03 RIGHT LOWER QUADRANT ABDOMINAL SWELLING, 06/19/2016 MADL, TARA L WOODWORKING MACHINE SETTER Ot N83.9 NONINFLAMMATORY DISORD OF OVARY, FALLOP 06/19/2016 MARA FERMIN, BRIDGETT N Ot K57.30 DVRTCLOS OF LG 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 06/19/2016 MARA FERMIN, BRIDGETT N Ot R19.09 OTHER INTRA-ABDOMINAL AND PELVIC SWELLIN 06/26/2016 LOIS BRIONES MD A Ot N83.9 NONINFLAMMATORY DISORD OF OVARY, FALLOP 07/18/2016 MARA FERMIN BRIDGETT N Ot K57.30 DVRTCLOS OF LG 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 07/18/2016 MARA FERMIN, BRIDGETT N Ot R19.09 OTHER INTRA-ABDOMINAL AND PELVIC SWELLIN 07/18/2016 MARA FERMIN BRIDGETT N Ot K57.30 DVRTCLOS OF LG 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 07/18/2016 MARA FERMIN BRIDGETT N Ot R19.09 OTHER INTRA-ABDOMINAL AND PELVIC SWELLIN 07/18/2016 MADL, TARA L WOODWORKING MACHINE SETTER Ot D25.9 LEIOMYOMA OF UTERUS, UNSPECIFIED 07/18/2016 MADL, TARA Roby WOODWORKING MACHINE SETTER Ot R19.03 RIGHT LOWER QUADRANT ABDOMINAL SWELLING, 07/18/2016 TARA THOMAS WOODWORKING MACHINE SETTER Ot N83.9 NONINFLAMMATORY DISORD OF OVARY, FALLOP 07/18/2016 ANSELMO FERMIN, LOIS Juan Ot N83.9 NONINFLAMMATORY DISORD OF OVARY, FALLOP 07/19/2016 ANSELMO FERMIN, LOIS Juan Ot N83.9 NONINFLAMMATORY DISORD OF OVARY, FALLOP 08/27/2016 TARA THOMAS WOODWORKING MACHINE SETTER Ot G47.33 OBSTRUCTIVE SLEEP APNEA (ADULT) (PEDIATR 08/28/2016 TARA THOMAS WOODWORKING MACHINE SETTER Ot G47.33 OBSTRUCTIVE SLEEP APNEA (ADULT) (PEDIATR 02/06/2017 JADIEL LEVIN MD Ot G56.02 CARPAL TUNNEL SYNDROME, LEFT UPPER LIMB 02/06/2017 JADIEL LEVIN MD Ot Z01.818 ENCOUNTER FOR OTHER PREPROCEDURAL EXAMIN 02/13/2017 JADIEL LEVIN MD Ot E78.5 HYPERLIPIDEMIA, UNSPECIFIED 02/13/2017 JADIEL LEVIN MD Ot F32.9 MAJOR DEPRESSIVE DISORDER, SINGLE EPISOD 02/13/2017 JADIEL LEVIN MD, Ot G56.02 CARPAL TUNNEL SYNDROME, LEFT UPPER LIMB 02/13/2017 JADIEL LEVIN MD Ot Z11.2 ENCOUNTER FOR SCREENING FOR OTHER BACTER 02/13/2017 JADIEL LEVIN MD Ot Z79.899 OTHER TANNERY WORKER (CURRENT) DRUG THERAPY 02/13/2017 JADIEL LEVIN MD Ot Z87.891 PERSONAL HISTORY OF NICOTINE DEPENDENCE Procedures Code [place] [address] TRICHOMONAS (IN-HOUSE) 09/21/2014 31039 ROUTINE VENIPUNCTURE 09/22/2014 83627 US PELVIC COMPL (REFLEX CPT- 49771) 09/22/2014 86506 GC/CHLAM PROBE (STATE) 09/22/2014 Q0091 PAP SMEAR OBTAIN SMEAR 09/22/2014 52663 CBC 09/22/2014 5372290 GFR CALC (RESULT ONLY) 09/22/2014 02572 CMP 09/22/2014 95132 LIPID PANEL 09/22 78033 TSH 09/22/2014 64081 INSULIN LEVEL 05/2014 64447 CULTURE UROGENITAL 09/23/2014 13522 PAP SMEAR 2013 Results Test Result Range Complete blood count (CBC) with automated white blood cell (WBC) differential - 06/24/16 15:53 Blood leukocytes automated count (number/volume) 7.0 10*3/ uL 4.3-11.0 Blood erythrocytes automated count (number/volume) 4.08 10*6 /uL 4.35-5.85 Venous blood hemoglobin measurement (mass/volume) 12.4 g/dL 11.5-16.0 Blood hematocrit (volume fraction) 36 % 35-52 Automated erythrocyte mean corpuscular volume 89 [foz_us] 80-99 Automated erythrocyte mean corpuscular hemoglobin (mass per erythrocyte) 30 pg 25-34 Automated erythrocyte mean corpuscular hemoglobin concentration measurement ( mass/volume) 34 g/dL 32-36 Automated erythrocyte distribution width ratio 12.9 % 10.0-14.5 Automated blood platelet count (count/volume) 250 10*3/uL 130-400 Automated blood platelet mean volume measurement 9.2 [foz_us ] 7.4-10.4 Automated blood neutrophils/100 leukocytes 56 % 42-75 Automated blood lymphocytes/100 leukocytes 37 % 12-44 Blood monocytes/100 leukocytes 5 % 0-12 Automated blood eosinophils/100 leukocytes 2 % 0-10 Automated blood basophils/100 leukocytes 0 % 0-10 Blood neutrophils automated count (number/volume) 3.9 10*3 1.8-7.8 Blood lymphocytes automated count (number/volume) 2.6 10*3 1.0-4.0 Blood monocytes automated count (number/volume) 0.3 10*3 0.0-1.0 Automated eosinophil count 0.2 10*3/uL 0.0-0.3 Automated blood basophil count (count/volume) 0.0 10*3/uL 0.0-0.1 PT panel in platelet poor plasma by coagulation assay - 06/24/16 15:53 Prothrombin time (PT) in platelet poor plasma by coagulation assay 12.5 s 12.2-14.7 INR in platelet poor plasma or blood by coagulation assay 1.0 0.8-1.4 Comprehensive metabolic panel - 06/24/16 15:53 Serum or plasma sodium measurement (moles/volume) 140 mmol/ L 135-145 Serum or plasma potassium measurement (moles/volume) 4.1 mmol/L 3.6-5.0 Serum or plasma chloride measurement (moles/volume) 108 mmol /L 98-107 Carbon dioxide 27 mmol/L 21-32 Serum or plasma anion gap determination (moles/volume) 5 mmol/L 5-14 Serum or plasma urea nitrogen measurement (mass/volume) 14 mg/dL 7-18 Serum or plasma creatinine measurement (mass/volume) 0.70 mg /dL 0.60-1.30 Serum or plasma urea nitrogen/creatinine mass ratio 20 NRG Serum or plasma creatinine measurement with calculation of estimated glomerular filtration rate > NRG Serum or plasma glucose measurement (mass/volume) 94 mg/dL 70-105 Serum or plasma calcium measurement (mass/volume) 9.0 mg/dL 8.5-10.1 Serum or plasma total bilirubin measurement (mass/volume) 0.1 mg/dL 0.1-1.0 Serum or plasma alkaline phosphatase measurement (enzymatic activity/volume) 61 U/L 40-136 Serum or plasma aspartate aminotransferase measurement (enzymatic activity/ volume) 14 U/L 5-34 Serum or plasma alanine aminotransferase measurement (enzymatic activity/volume ) 18 U/L 0-55 Serum or plasma protein measurement (mass/volume) 6.1 g/dL 6.4-8.2 Serum or plasma albumin measurement (mass/volume) 4.1 g/dL 3.2-4.5 Methicillin resistant Staphylococcus aureus (MRSA) screening culture - 07:05 Methicillin resistant Staphylococcus aureus (MRSA) screening culture NEG NRG Encounters ACCT No. Visit Date/Time Discharge Status Pt. Type Provider Facility Loc./Unit Complaint [id number] 02/12/2017 06:41:00 2016 11:40:00 DIS Outpatient JADIEL LEVIN MD [facility] SDC LEFT CTS [id number] 02/06/2017 05:34:00 2016 11:04:00 DIS Outpatient JADIEL LEVIN MD [facility] PREOP LEFT CTS [id number] 08/26/2016 20:50:00 2015 06:20:00 DIS Outpatient TARA THOMAS [facility] SLEEP OBSTRUCTIVE SLEEP APNEA [id number] 09/29/2014 12:54:00 2013 23:59:59 CLS Outpatient DEANNAMANDY CALDERON APRN [facility] RAD [id number] 06/24/2016 15:42:00 ACT Outpatient ANSELMO FERMIN, LOIS Juan [facility] LAB OVARIAN MASS [id number] 06/06/2016 08:13:00 ACT Outpatient MARA FERMIN, BRIDGETT Casey [facility] RAD OVARIAN MASS, RT [id number] 05/27/2016 10:21:00 ACT Outpatient TARA THOMAS WOODWORKING MACHINE SETTER [facility] RAD OVARIAN MASS,RT [id number] 05/16/2016 09:58:00 ACT Outpatient TARA THOMAS WOODWORKING MACHINE SETTER [facility] RAD PELVIC PAIN,DYSFUNCTIONAL UTERINE BLEEDING [id number] 07/14/2012 17:05:00 Document Registration [id number] 06/12/2012 23:12:00 Document Registration [id number] 12/03/2011 19:55:00 Document Registration [id number] 11/07/2011 20:26:00 Document Registration [id number] 09/30/2011 10:33:00 Document Registration [id number] 07/01/2011 14:34:00 Document Registration [id number] 06/30/2011 17:08:00 Document Registration
--- OUTSIDE RECORDS SUMMARY | 2017-03-02 05:47 | XMS REPORT ---
Author Author TARA THOMAS [facility] eClinicalWorks Address Unknown Phone Unavailable Care Team Providers Care Junior Buyer Name Role Phone TARA THOMAS CP Unavailable Allergies, Adverse Reactions, Alerts Substance Reaction Event Type N.K.D.A. Info Not Available Non Drug Allergy Problems Problem Type Condition Code Onset Dates Condition Status Problem Acute [...] 786.2 Active Problem Wheezing 786.07 Active Assessment Elevated blood pressure I10 Active Problem Irregular menstrual cycle 626.4 Active Assessment Upper respiratory infection J06.9 Active Problem Other abnormal glucose 790.29 Active Medications Medication Code System Code Instructions Start Date End Date Status Dosage Azithromycin [facility] [address]-48 250 MG Orally Once a day Sep 12, 2015 Sep 19, 2015 2 tablets on the first day, then 1 tablet daily for 6 days Tessalon [address] [facility] [address]-20 100 MG Orally Three times a day prn Sep 12, 2015 Oct 02, 2015 1 capsule as needed Zoloft [facility] [address]-16 50 MG Orally Once a day Aug 10, 2015 1 tablet Procedures Procedure Coding System Code Date Office Visit, Est Pt., Level 3 CPT-4 34533 Sep 12, 2015 Vital Signs Date/Time: Sep 12, 2015 Temperature 97.0 F Weight 264.3 lbs Height 68 in BMI 40.18 Index Blood Pressure Diastolic 90 mmHg Blood Pressure Systolic 160 mmHg Cardiac Monitoring Heart Rate 82 bpm Results No Known Results Summary Purpose eClinicalWorks Submission
--- OUTSIDE RECORDS SUMMARY | 2017-03-02 05:47 | XMS REPORT ---
Author Author TARA THOMAS Organization eClinical[employer] Address Unknown Phone Unavailable Care Team Providers Care Starting Gate Driver Name Role Phone TARA THOMAS CP Unavailable Allergies No Known Allergies Problems Problem Type Condition Code Onset Dates Condition Status Problem HTN (hypertension) I10 Active Problem Hypertriglyceridemia E78.1 Active Problem Abnormal fasting glucose R73.09 Active Problem Personal history of tobacco use, presenting hazards to health V15.82 Active Medications Medication Code System Code Instructions Start Date End Date Status Dosage Cyclobenzaprine HCl [facility] [address]-99 10 MG Orally PRN at Oct 18, 2015 1 tablet Results No Known Results Summary Purpose eClinicalWorks Submission
--- OUTSIDE RECORDS SUMMARY | 2017-03-02 05:48 | XMS REPORT ---
Author Author TARA THOMAS [facility] [place] eClinicalWorks Address Unknown Phone Unavailable Care Team Providers Care Plant Senior Manager Name Role Phone TARA THOMAS CP Unavailable Allergies, Adverse Reactions, Alerts Substance Reaction Event Type N.K.D.A. Info Not Available Non Drug Allergy Problems Problem Type Condition Code Onset Dates Condition Status Assessment Upper respiratory infection J06.9 Active Problem Cough 786.2 Active Assessment HTN (hypertension) I10 Active Assessment Hypertriglyceridemia E78.1 Active Assessment Abnormal fasting glucose R73.09 Active Problem Hypertriglyceridemia E78.1 Active Problem Personal history of tobacco use, presenting hazards to health V15.82 Active Problem HTN (hypertension) I10 Active Problem Irregular menstrual cycle 626.4 Active Problem Wheezing 786.07 Active Problem Acute sinusitis, unspecified 461.9 Active Problem Other abnormal glucose 790.29 Active Medications Medication Code System Code Instructions Start Date End Date Status Dosage Azithromycin [facility] [address]-32 250 MG Orally Once a day Sep 21, 2015 Sep 26, 2015 2 tablets on the first day, then 1 tablet daily for 4 days Losartan Potassium [facility] [address]-01 50 MG Orally 2 times a day Sep 14, 2015 1 tablet Tessalon Perles [facility] [address]-50 100 MG Orally Three times a day prn Sep 12, 2015 Oct 02, 2015 1 capsule as needed Fish Oil Maximum Strength [facility] 46882-[address]1 1200 MG Orally Once a day SepOct 21, 2015 1 capsule Zoloft [facility] [address]-09 50 MG Orally Once a day Aug 10, 2015 1 tablet Procedures Procedure Coding System Code Date Office Visit, Est Pt., Level 3 CPT-4 34399 Sep 21, 2015 Vital Signs Date/Time: Sep 21, 2015 Temperature 97.0 F Weight 279.8 lbs Height 68 in BMI 42.54 Index Blood Pressure Diastolic 88 mmHg Blood Pressure Systolic 138 mmHg Cardiac Monitoring Heart Rate 84 bpm Results No Known Results Summary Purpose eClinicalWorks Submission
--- OUTSIDE RECORDS SUMMARY | 2017-03-02 05:48 | XMS REPORT ---
Author Author TARA THOMAS [facility] eClinicalWorks Address Unknown Phone Unavailable Care Team Providers Care Bacteriologist Soil Name Role Phone TARA THOMAS Unavailable Allergies, Adverse Reactions, Alerts Substance Reaction [...] Cough 786.2 Active Problem Wheezing 786.07 Active Problem Irregular menstrual cycle 626.4 Active Assessment Essential hypertension I10 Active Problem Other abnormal glucose 790.29 Active Medications Medication Code System Code Instructions Start Date End Date Status Dosage Zoloft [facility] [address]-14 50 MG Orally Once a day Aug 10, 2015 1 tablet Azithromycin [facility] [address]-69 250 MG Orally Once a day Sep 12, 2015 Sep 19, 2015 2 tablets on the first day, then 1 tablet daily for 6 days Tessalon Perles [facility] [address]-38 100 MG Orally Three times a day prn Sep 12, 2015 Oct 02, 2015 1 capsule as needed Losartan Potassium [facility] [address]-90 25 MG Orally Once a day Sep 14, 2015 1 tablet Procedures Procedure Coding System Code Date Office Visit, Est Pt., Level 3 CPT-4 01358 Sep 14, 2015 ELECTROCARDIOGRAM, TRACING CPT-4 38960 Sep 14, 2015 Vital Signs Date/Time: Sep 14, 2015 Temperature 98.7 F Weight 265 lbs Height 68 in BMI 40.29 Index Blood Pressure Diastolic 90 mmHg Blood Pressure Systolic 132 mmHg Cardiac Monitoring Heart Rate 82 bpm Results No Known Results Summary Purpose eClinicalWorks Submission
--- OUTSIDE RECORDS SUMMARY | 2017-03-02 05:48 | XMS REPORT ---
Author JI Dutton [facility] eClinicalWorks Address Unknown Phone Unavailable Care Team Providers Care Vice President Consulting Services Name Role Phone JI ROBERSON CP Unavailable Allergies, Adverse Reactions, Alerts Substance Reaction Event Type N.K.D.A. Info Not Available Non Drug Allergy Problems Problem Type Condition Code Onset Dates Condition Status Assessment Bronchitis J40 Active Assessment Tobacco use Z72.0 Active Assessment Tobacco abuse counseling Z71.6 Active Assessment HTN (hypertension) I10 Active Problem Dysfunctional uterine bleeding N93.8 Active Problem Sleep apnea in adult G47.33 Active Problem Pelvic pain R10.2 Active Problem HTN (hypertension) I10 Active Problem Hypertriglyceridemia E78.1 Active Problem Depression, unspecified depression type F32.9 Active Problem Abnormal fasting glucose R73.09 Active Medications Medication Code System Code Instructions Start Date End Date Status Dosage Amlodipine Besylate [facility] 14136639655 5 MG TAKE ONE TABLET BY MOUTH ONCE DAILY Zoloft [facility] [address]-55 50 MG Orally Once a day Aug 10, 2015 1 tablet Chantix Starting Month [facility] [address]-67 0.5 MG X 11 & 1 MG X 42 Orally Sep 25, 2016 Oct 25, 2016 Titrate as directed Chantix Continuing Month [facility] [address]-04 1 MG Orally Twice a day Sep 25, 2016 1 tablet ProAir HFA [facility] [address]-30 108 (90 Base) MCG/ACT Inhalation every 4 hrs as needed Sep 19, 2016 2 puffs as needed Incruse Ellipta [facility] [address]-57 62.5 MCG/INH Inhalation Once a day Sep 1 puff PredniSONE [facility] [address]-24 20 mg Orally twice a day Sep 25, 2016Sep 1 tablet Losartan Potassium [facility] [address]-42 50 mg Orally 2 times a day 1 tablet Procedures Procedure Coding System Code Date Office Visit, Est Pt., Level 4 CPT-4 75425 Sep 25, 2016 Vital Signs Date/Time: Sep 25, 2016 Cardiac Monitoring Heart Rate 78 bpm Weight 256 lbs Height 68 in BMI 38.92 Index Blood Pressure Diastolic 80 mmHg Blood Pressure Systolic 110 mmHg Results No Known Results Summary Purpose eClinicalWorks Submission
--- OUTSIDE RECORDS SUMMARY | 2017-03-02 05:48 | XMS REPORT ---
Author Author TARA THOMAS [facility] eClinicalWorks Address Unknown Phone Unavailable Care Team Providers Care Etl Developer Name Role Phone TARA THOMAS CP Unavailable [...] Problem Other abnormal glucose 790.29 Active Medications No Known Medications Procedures Procedure Coding System Code Date COMPLETE CBC W/AUTO DIFF WBC CPT-4 76600 Sep 15, 2015 LIPID PANEL CPT-4 88518 Sep 15, 2015 ASSAY THYROID STIM HORMONE CPT-4 30835 Sep 15, 2015 VENIPUNCT, ROUTINE* CPT-4 88754 Sep 15, 2015 COMPREHEN METABOLIC PANEL CPT-4 40830 Sep 15, 2015 Results Name Result Date Reference Range Unit Abnormality Flag ROUTINE VENIPUNCTURE Summary Purpose eClinicalWorks Submission
--- OUTSIDE RECORDS SUMMARY | 2017-03-02 05:48 | XMS REPORT ---
Author Author TARA THOMAS Organization eClinicalWorks Address Unknown Phone Unavailable Care Team Providers Care Lumber Material Handler Name Role Phone TARA THOMAS CP Unavailable Allergies No Known Allergies Problems Problem Type Condition Code Onset Dates Condition Status Problem HTN (hypertension) I10 Active Problem Hypertriglyceridemia E78.1 Active Problem Abnormal fasting glucose R73.09 Active Problem Personal history of tobacco use, presenting hazards to health V15.82 Active Assessment Elevated fasting glucose R73.01 Active Medications No Known Medications Procedures Procedure Coding System Code Date VENIPUNCT, ROUTINE* CPT-4 33683 Nov 15, 2015 GLUCOSE TOLERANCE TEST (GTT) CPT-4 40752 Nov 15, 2015 Results Name Result Date Reference Range Unit Abnormality Flag ROUTINE VENIPUNCTURE Summary Purpose eClinicalWorks Submission
--- OUTSIDE RECORDS SUMMARY | 2017-03-02 05:48 | XMS REPORT ---
Author Author TARA THOMAS Organization eClinicalWorks Address Unknown Phone Unavailable Care Team Providers Care Nail Welter Name Role Phone TARA THOMAS CP Unavailable Allergies No Known Allergies Problems Problem Type Condition Code Onset Dates Condition Status Problem Dysfunctional uterine bleeding N93.8 Active Problem Sleep apnea in adult G47.33 Active Problem Pelvic pain R10.2 Active Problem HTN (hypertension) I10 Active Problem Hypertriglyceridemia E78.1 Active Problem Depression, unspecified depression type F32.9 Active Problem Abnormal fasting glucose R73.09 Active Medications No Known Medications Results No Known Results Summary Purpose eClinicalWorks Submission
--- OUTSIDE RECORDS SUMMARY | 2017-03-02 05:48 | XMS REPORT ---
Author Author TARA THOMAS Organization eClinicalWorks Address Unknown Phone Unavailable Care Team Providers Care Launch Steward Name Role Phone TARA THOMAS CP Unavailable [...] glucose 790.29 Active Medications No Known Medications Vital Signs Date/Time: Sep 08, 2015 Blood Pressure Diastolic 90 mmHg Blood Pressure Systolic 138 mmHg Height 68 in Results No Known Results Summary Purpose eClinicalWorks Submission
--- OUTSIDE RECORDS SUMMARY | 2017-03-02 05:48 | XMS REPORT ---
Author Author TARA THOMAS [facility] eClinicalWorks Address Unknown Phone Unavailable Care Team Providers Care Junior Underwriter Name Role Phone TARA THOMAS CP Unavailable Allergies, Adverse Reactions, Alerts Substance Reaction Event Type N.K.D.A. Info Not Available Non Drug Allergy Problems Problem Type Condition Code Onset Dates Condition Status Assessment Abnormal fasting glucose R73.09 Active Problem HTN (hypertension) I10 Active Problem Hypertriglyceridemia E78.1 Active Problem Abnormal fasting glucose R73.09 Active Assessment Personal history of tobacco use, presenting hazards to health V15.82 Active Assessment Hypertriglyceridemia E78.1 Active Problem Personal history of tobacco use, presenting hazards to health V15.82 Active Assessment HTN (hypertension) I10 Active Medications Medication Code System Code Instructions Start Date End Date Status Dosage Amlodipine Besylate [facility] [address]-49 5 MG Orally Once a day Oct 17, 2015 1 tablet Zoloft [facility] [address]-74 50 MG Orally Once a day Aug 10, 2015 1 tablet Fish Oil Maximum Strength [facility] 47[address]27 1200 MG Orally Once a day SepOct 21, 2015 1 capsule Losartan Potassium [facility] [address]-09 50 MG Orally 2 times a day Sep 14, 2015 1 tablet Procedures Procedure Coding System Code Date Office Visit, Est Pt., Level 3 CPT-4 65251 Oct 17, 2015 Vital Signs Date/Time: Oct 17, 2015 Temperature 97.0 F Weight 259.0 lbs Height 68 in BMI 39.38 Index Blood Pressure Diastolic 86 mmHg Blood Pressure Systolic 146 mmHg Cardiac Monitoring Heart Rate 78 bpm Results No Known Results Summary Purpose eClinicalWorks Submission
--- OUTSIDE RECORDS SUMMARY | 2017-03-02 05:48 | XMS REPORT ---
Author JI Dutton [facility] [place] eClinicalWorks Address Unknown Phone Unavailable Care Team Providers Care Data Scientist Name Role Phone JI ROBERSON CP Unavailable [...] V74.5 Active Problem Morbid obesity 278.01 Active Assessment HTN (hypertension) I10 Active Problem Wheezing 786.07 Active Problem Irregular menstrual cycle 626.4 Active Assessment Bronchitis J40 Active Problem Other abnormal glucose 790.29 Active Problem Cough 786.2 Active Problem Acute sinusitis, unspecified 461.9 Active Medications Medication Code System Code Instructions Start Date End Date Status Dosage ProAir HFA [facility] [address]-68 108 (90 Base) MCG/ACT Inhalation every 4 hrs Sep 18, 2015 2 puffs as needed Azithromycin [facility] [address]-92 250 MG Orally Once a day Sep 12, 2015 Sep 19, 2015 2 tablets on the first day, then 1 tablet daily for 6 days Tessalon Perles [facility] [address]-36 100 MG Orally Three times a day prn Sep 12, 2015 Oct 02, 2015 1 capsule as needed Zoloft [facility] [address]-86 50 MG Orally Once a day Aug 10, 2015 1 tablet Losartan Potassium [facility] [address]-84 25 MG Orally 2 times a day Sep 18, 2015 1 tablet Procedures Procedure Coding System Code Date DEXAMETHASONE 4MG/ML (PER 1 MG) CPT-4 J1100 Sep 18, 2015 THER/PROPH/DIAG INJ, SC/IM CPT-4 00916 Sep 18, 2015 Office Visit, Est Pt., Level 4 CPT-4 08602 Sep 18, 2015 DEPO MEDROL 80 MG/ML CPT-4 J1040 Sep 18, 2015 Vital Signs Date/Time: Sep 18, 2015 Temperature 98.0 F Weight 261.1 lbs Height 68 in BMI 39.70 Index Blood Pressure Diastolic 86 mmHg Blood Pressure Systolic 160 mmHg Cardiac Monitoring Heart Rate 82 bpm Results No Known Results Summary Purpose eClinicalWorks Submission
--- OUTSIDE RECORDS SUMMARY | 2017-03-02 05:49 | XMS REPORT ---
Author Author TARA THOMAS [facility] eClinicalWorks Address Unknown Phone Unavailable Care Team Providers Care Stitching Machine Setter Name Role Phone TARA THOMAS CP Unavailable Allergies, Adverse Reactions, Alerts Substance Reaction Event Type N.K.D.A. Info Not Available Non Drug Allergy Problems Problem Type Condition Code Onset Dates Condition Status Problem HTN (hypertension) I10 Active Problem Hypertriglyceridemia E78.1 Active Problem Abnormal fasting glucose R73.09 Active Assessment Abnormal fasting glucose R73.09 Active Problem Personal history of tobacco use, presenting hazards to health V15.82 Active Assessment HTN (hypertension) I10 Active Medications Medication Code System Code Instructions Start Date End Date Status Dosage Amlodipine Besylate [facility] [address]-22 5 MG Orally Once a day Oct 17, 2015 1 tablet Zoloft [facility] [address]-38 50 MG Orally Once a day Aug 10, 2015 1 tablet Losartan Potassium [facility] [address]-62 50 MG Orally 2 times a day Sep 14, 2015 1 tablet Procedures Procedure Coding System Code Date VENIPUNCT, ROUTINE* CPT-4 97518 Nov 14, 2015 Office Visit, Est Pt., Level 3 CPT-4 30663 Nov 14, 2015 COMPREHEN METABOLIC PANEL CPT-4 92995 Nov 14, 2015 Vital Signs Date/Time: Nov 14, 2015 Temperature 97.2 F Weight 266.0 lbs Height 68 in BMI 40.44 Index Blood Pressure Diastolic 84 mmHg Blood Pressure Systolic 124 mmHg Cardiac Monitoring Heart Rate 78 bpm Results Name Result Date Reference Range Unit Abnormality Flag ROUTINE VENIPUNCTURE CMP ----Sodium, Serum 140 20151114 134-144 mmol/L ----BUN/Creatinine Ratio 18 20151114 9-23 ----Chloride, Serum 102 20151114 97-108 mmol/L ----Potassium, Serum 4.0 20151114 3.5-5.2 mmol/L ----Calcium, Serum 9.2 20151114 8.7-10.2 mg/dL ----Protein, Total, Serum 6.4 20151114 6.0-8.5 g/dL ----Carbon Dioxide, Total 26 20151114 18-29 mmol/L ----A/G Ratio 2.0 20151114 1.1-2.5 ----eGFR If NonAfricn Am 111 [id number] >59 mL/min/1.73 ----Bilirubin, Total 0.3 20151114 0.0-1.2 mg/dL ----eGFR If Africn Am 128 [id number] >59 mL/min/1.73 ----BUN 12 20151114 6-24 mg/dL ----Albumin, Serum 4.3 20151114 3.5-5.5 g/dL ----Globulin, Total 2.1 20151114 1.5-4.5 g/dL ----Creatinine, Serum 0.66 20151114 0.57-1.00 mg/dL ----ALT (SGPT) 18 20151114 0-32 IU/L ----Glucose, Serum 135 20151114 65-99 mg/dL H ----Alkaline Phosphatase, S 72 20151114 39-117 IU/L ----AST (SGOT) 16 20151114 0-40 IU/L Summary Purpose eClinicalWorks Submission
== END 2017-02-12 11:40 | disposition home or self-care (01) ==
LOC: DELPENDDIS → SDC 06:41
PROVIDERS: ATTEND Orthopaedic Surgery
DX: G56.02 Carpal tunnel syndrome, left upper limb (principal); Z11.2 Encounter for screening for other bacterial diseases; E78.5 Hyperlipidemia, unspecified; F32.9 Major depressive disorder, single episode, unspecified; Z87.891 Personal history of nicotine dependence; Z79.899 Other long term (current) drug therapy
CPT/HCPCS: 87081

== ENCOUNTER 2017-03-28 12:30 | Outpatient (CLI) | payer BC ==
[~2017-03-28] VITALS: Ht 175.3 cm; Wt 122.5 kg
[~2017-03-28 12:30] MED LIST changes: +HYDR-3816 PO
== END 2017-03-28 12:44 ==
LOC: PREOP 12:30
PROVIDERS: ATTEND Orthopaedic Surgery
DX: Z01.818 Encounter for other preprocedural examination (principal); G56.01 Carpal tunnel syndrome, right upper limb

== ENCOUNTER 2017-04-02 07:42 | Day surgery (SDC) | payer BC ==
--- NOTE | 2017-03-25 13:15 | HISTORY AND PHYSICAL ---
DATE OF SERVICE: This will be for outpatient surgery on 04/02/2017 for right carpal tunnel release. HISTORY OF PRESENT ILLNESS: The patient is a 41-year-old right hand dominant female with complaints of right hand pain and paresthesias intermittently. She underwent an EMG which revealed evidence of right carpal tunnel syndrome. She reports night pain with associated paresthesias. She just tried rest, activity modifications and splinting as well as antiinflammatory but reports continued functional impairment and due to failure to improve with conservative measures, the patient has elected to proceed with surgical intervention. REVIEW OF SYSTEMS: No chest pain, no shortness of breath, no dysuria. PAST MEDICAL HISTORY: Depression, hyperlipidemia, sleep apnea, obesity, ovarian cyst. PAST SURGICAL HISTORY: Hysterectomy and tonsillectomy. FAMILY HISTORY: Hypertension and diabetes. PRIMARY CAREGIVER: [facility]. MEDICATIONS: 1. Losartan. 2. Zoloft. 3. Amlodipine. ALLERGIES: No known drug allergies. SOCIAL HISTORY: The patient denies alcohol use. She is a former smoker. PHYSICAL EXAMINATION: GENERAL: The patient is well-developed, well-nourished, in no acute distress. HEENT: Normocephalic, atraumatic. Pupils are equal, round and reactive to light. Oropharynx is clear. NECK: Supple, no lymphadenopathy. LUNGS: Clear to auscultation bilaterally. HEART: Regular rate and rhythm. ABDOMEN: Soft, nontender and nondistended. EXTREMITY: The right upper extremity demonstrates a positive Tinel at the carpal tunnel. She has a positive Phalen maneuver. No thenar atrophy is noted. She has 5/5 thumb palmar abduction strength. IMPRESSION: Right carpal tunnel syndrome. PLAN: Right carpal tunnel release. The risks, benefits, options, ramifications and recovery have been discussed at length with the patient. She understands and wishes to proceed. Job ID: [id number] DocumentID: [id number] Dictated Date: 03/25/2017 11:07:45 Quality Control Engineer Date: 03/25/2017 11:30:47 Dictated By: JADIEL LEVIN MD
[~2017-04-02] VITALS: Ht 175.3 cm; Wt 122.5 kg
[2017-04-02] MEDS ORDERED: LACTATED RINGERS 1,000 ML IV PRN (07:58)
[2017-04-02 08:10] VITALS: BP 132/88
[2017-04-02] MEDS ORDERED: ceFAZolin 1,000 MG (ANCEF) VIAL ONE (08:12)
[2017-04-02] MEDS ORDERED: NS (IVPB) 50 ML ONE (08:13)
[2017-04-02] MEDS ORDERED: LIDOCAINE 1% INJ 20 ML (XYLOCAINE) VIAL ONE (08:30)
[2017-04-02] MEDS ORDERED: ceFAZolin 1 GM/NS 50 ML IVPB IV ONE ×2 (08:30)
[2017-04-02] MEDS ORDERED: BUPIVACAINE 0.5% 30 ML (SENSORCAINE) VIAL ONE (08:30)
[2017-04-02] MEDS ORDERED: proPOfol 200 MG/20 ML (DIPRIVAN) VIAL IV ONE (08:54)
[2017-04-02] MEDS ORDERED: fentaNYL INJECTION 100 MCG/2 ML AMP ONE (08:54)
[2017-04-02] MEDS ORDERED: MIDAZOLAM 2 MG/2 ML (VERSED) VIAL ONE (08:55)
--- NOTE | 2017-04-02 08:59 | Progress Note-Pre Operative ---
Pre-Operative Progress Note H&P Reviewed The H&P was reviewed, patient examined and no changes noted. Date H&P Reviewed: April 02, 2017 Time H&P Reviewed: 08:59 Pre-Operative Diagnosis: right carpal tunnel release JADIEL LEVIN MD April 02, 2017 08:59
--- NOTE | 2017-04-02 09:00 | Progress Note-Post Operative ---
Post-Operative Progess Note Surgeon (s)/Communications Superintendent (s) Surgeon JADIEL LEVIN MD Communications Superintendent: Deon Cedillo Pre-Operative Diagnosis right carpal tunnel syndrome Post-Operative Diagnosis right carpal tunnel syndrome Procedure & Operative Findings Date of Procedure 04/02/17 Procedure Preformed/Findings right carpal tunnel release Anesthesia Type MAC plus local Estimated Blood Loss Estimated blood loss (mL): minimal Specimens/Packing Specimens Removed none Packing: none JADIEL LEVIN MD April 02, 2017 09:00
[2017-04-02] MEDS ORDERED: HYDROcodone/APAP 7.5 MG/325 MG (LORTAB, LORCET PLUS) TABLET PO PRN (09:15)
[2017-04-02] MEDS ORDERED: ONDANSETRON 4 MG/2 ML (SDV) Z0FRAN IVP PRN (10:00)
[2017-04-02] MEDS ORDERED: morphine INJ 10 MG/ML 1ML (SYR OR VIAL) IVP PRN (10:00)
[2017-04-02 10:10] VITALS: BP 125/86
[2017-04-02] MEDS ORDERED: HYDR-3816 PO (10:11)
[2017-04-02 10:40] VITALS: BP 127/66
--- NOTE | 2017-04-03 01:08 | OPERATIVE REPORT ---
DATE OF SERVICE: 04/02/2017 PREOPERATIVE DIAGNOSIS: Right carpal tunnel syndrome. POSTOPERATIVE DIAGNOSIS: Right carpal tunnel syndrome. PROCEDURE PERFORMED: Right open carpal tunnel release. SURGEON: Dr. Jadiel Levin. TOBACCO SWEEPER: PHILLIP Hoff, who assisted throughout the procedure and closed the incision. ANESTHESIA: Monitored anesthesia care plus local by Dr. Kelly. TOURNIQUET TIME: 3 minutes at 250 mmHg. ESTIMATED BLOOD LOSS: Minimal. DRAINS: None. COMPLICATIONS: None. POSTOPERATIVE PLAN: Routine protocol. The patient was transported to the recovery room awake and in stable condition. STATEMENT OF MEDICAL NECESSITY: The patient is a 41-year-old [id number] female with complaints of right hand pain and paresthesias. She complained of night pain. She complained of paresthesias. She had positive Tinel's of carpal tunnel and positive Phalen's maneuver and due to functional impairment and failure to improve with conservative measures, the patient elected to proceed with surgical intervention. DESCRIPTION OF PROCEDURE: After risks and benefits of the procedure were discussed and questions were answered and informed consent was signed and placed on the chart, the operative site was confirmed in the preoperative holding area and initialed by the surgeon. The patient was then transported to the operating room and after adequate levels of monitored anesthesia care were obtained under sterile conditions and after performing a timeout, the incision area on the right hand was sterilely infiltrated with a combination of plain lidocaine and plain Marcaine. The right upper extremity was then prepped and draped in the usual sterile fashion. With the arm elevated, the tourniquet was inflated to 250 mmHg. A standard incision was made in line with the radial border of the ring finger over the transverse carpal ligament. The underlying soft tissues were carefully dissected. The transverse carpal ligament was identified and incised by pushing through with a scalpel blade. The median nerve was identified and carefully protected throughout the procedure and intact at the conclusion of the procedure. The distal extent was confirmed fully released under direct visualization, and proximally, the transverse carpal ligament was spread above and below with dissection scissors and then opened with slightly opened scissor edges while protecting median nerve. This was confirmed, fully freed with a freer. The tourniquet was deflated for a total tourniquet time of 3 minutes. Pressure was used for hemostasis. The wound was copiously irrigated and closed with 4-0 nylon in a running alternating horizontal mattress fashion. A soft dressing and splint were applied, and the patient was transported to the recovery room awake and in stable condition. Job ID: [id number] DocumentID: [id number] Dictated Date: 04/02/2017 09:37:51 Network And Threat Support Specialist Date: 04/03/2017 00:51:30 Dictated By: JADIEL LEVIN MD
== END 2017-04-02 10:49 | disposition home or self-care (01) ==
LOC: SDC 07:42
PROVIDERS: ATTEND Orthopaedic Surgery
DX: G56.01 Carpal tunnel syndrome, right upper limb (principal); Z11.2 Encounter for screening for other bacterial diseases; F32.9 Major depressive disorder, single episode, unspecified; E78.5 Hyperlipidemia, unspecified; Z87.891 Personal history of nicotine dependence; Z79.899 Other long term (current) drug therapy
CPT/HCPCS: 87081

== ENCOUNTER 2019-09-29 05:31 | Outpatient (CLI) | payer BC ==
[~2019-09-29] VITALS: Ht 175 cm; Wt 118.0 kg
[~2019-09-29 05:31] MED LIST changes: -AMLO5TAB2 PO; +AMLO5TAB9 PO; +HYDR-34 PO; -HYDR-3816 PO; -LOSA50TA36 PO; +LOSA50TA63 PO
[2019-09-29] MEDS ORDERED: SERT100T8 PO (12:06)
[2019-09-29] MEDS ORDERED: PROP20TA5 PO (12:06)
== END 2019-09-29 12:21 | disposition home or self-care (01) ==
LOC: PREOP 05:31
PROVIDERS: ATTEND Surgery
DX: Z01.818 Encounter for other preprocedural examination (principal)

== ENCOUNTER → 2020-08-16 | Outpatient (CLI) | payer BC, OTHER ==
[~2020-08-16] MED LIST changes: +PROP20TA5 PO; +SERT100T8 PO
--- NOTE | 2020-08-17 09:57 | Diagnostic Imaging Report ---
INDICATION: Routine screening. No prior mammograms are available for comparison. This is a baseline study. 2-D and 3-D bilateral screening mammography was performed with CAD. Scattered fibroglandular densities are identified bilaterally. No mass or malignant appearing microcalcifications are seen. Axillae are unremarkable. IMPRESSION: BI-RADS Category 1 No mammographic features suspicious for malignancy are identified. ACR BI-RADS Category 1: Negative. Result letter will be mailed to the patient. Note: At least 10% of breast cancer is not imaged by mammography. Dictated by: Dictated on workstation # [id number]
== END ==
LOC: RAD 14:00
PROVIDERS: ATTEND Nurse Practitioner
DX: Z12.31 Encounter for screening mammogram for malignant neoplasm of breast (principal)
CPT/HCPCS: 77063; 77067